=== PATIENT | male | born 1955 | race Caucasian/White ===

== ENCOUNTER 2025-02-01 08:06 | Inpatient (IN) | payer OTHER ==
[~2025-02-01] VITALS: Ht 177.8 cm; Wt 77.0 kg
[2025-02-01] VITALS (9 sets, daily range): BP systolic 141–149; BP diastolic 68–83; PULSE 73–105; RESP 16–20; TEMP 98.3–99.8; O2SAT 92–100
[2025-02-01] MEDS: ACETAMINOPHEN 500 MG TAB or CAP PO ONE (08:18)
--- NOTE | 2025-02-01 08:30 | ED.PDOC ---
SOB-HPI HPI Comments 69 y/o M, BIBA, with PMHx of COPD, HTN, and CHF presents to the ED for CC of shortness of breath. EMS reports, patient is coming from home where he c/o shortness of breath x2days. Patient relays, to have further associated symptoms of weakness, dizziness, and fever. Upon arrival to the ED, patient is stating at 96% on R.A. Patient denies cough, nasal congestion, chest pain, or sick contacts. No other symptoms or modifying factors are present at this time. Chief Complaint: Shortness of Breath Time Seen by MD: 08:15 Reviewed notes: Nurses Notes, [employer] Notes, Medications, Allergies Information Source: Patient, Emergency Med Personnel Mode of Arrival: EMS Severity: Moderate Timing: Days Duration: Since onset Context: At Rest PE Risk Factors: None History of: COPD, CHF Prehospital treatment: None Modifying Factors: Nothing Associated Signs and Symptoms: Fever Past Medical History PAST MEDICAL HISTORY: CHF, COPD, Gout Surgical History: Denies all surgeries Family History Family History: Unknown Social History Smoker: Unknown Alcohol: Unknown Drugs: Unknown Lives In: Home Constitutional: reports: fever, weakness; denies: chills, diaphoresis, fatigue, malaise, sweats, others EENTM: denies: blurred vision, double vision, ear bleeding, ear discharge, ear drainage, ear pain, ear ringing, eye pain, eye redness, hearing loss, mouth pain, mouth swelling, nasal discharge, nose bleeding, nose congestion, nose pain, photophobia, tearing, throat pain, throat swelling, voice changes, others Respiratory: reports: shortness of breath; denies: cough, hemoptysis, orthopnea, SOB at rest, SOB with excertion, stridor, wheezing, others Cardiovascular: denies: chest pain, dizzy spells, diaphoresis, Dyspnea on exertion, edema, irregular heart beat, left arm pain, lightheadedness, palpitations, PND, syncope, others Gastrointestinal: denies: abdomen distended, abdominal pain, blood streaked bowels, constipated, diarrhea, dysphagia, difficulty swallowing, hematemesis, melena, nausea, poor appetite, poor fluid intake, rectal bleeding, rectal pain, vomiting, others Genitourinary: denies: burning, dysuria, flank pain, frequency, hematuria, incontinence, penile discharge, penile sore, pain, testicle pain, testicle swelling, urgency, others Neurological: reports: dizziness; denies: fainting, headache, left sided numbness, left sided weakness, numbness, paresthesia, pre-existing deficit, right sided numbness, right sided weakness, seizure, speech problems, tingling, tremors, weakness, others Musculoskeletal: denies: back pain, gout, joint pain, joint swelling, muscle pain, muscle stiffness, neck pain, others Integumetry: denies: bruises, change in color, change in hair/nails, dryness, laceration, lesions, lumps, rash, wounds, others Allergic/Immunocompromised: denies: Difficulty Healing, Frequent Infections, Hives, Itching, others Hematologic/Lymphatic: denies: anemia, blood clots, easy bleeding, easy bruising, swollen glands, others Endocrine: denies: excessive hunger, excessive sweating, excessive thirst, excessive urination, flushing, intolerance to cold, intolerance to heat, unexplained weight gain, unexplained weight loss, others Psychiatric: denies: anxiety, bipolar disorder, depression, hopeless, panic disorder, schizophrenia, sleepless, suicidal, others All Other Systems: Reviewed and Negative Physical Exam General Appearance: Severe Distress HEENT: Normal ENT Inspection, Pharynx Normal, TMs Normal Neck: Full Range of Motion, Non-Tender, Normal, Normal Inspection Respiratory: Other (Coarse breath sounds) Cardiovascular: Tachycardia Breast Exam: Deferred Gastrointestinal: No Organomegaly, Non Tender, No Pulsatile Mass, Normal Bowel Sounds, Soft Genitalia: Deferred Pelvic: Deferred Rectal: Deferred Extremities: No calf tenderness, Normal capillary refill, Normal inspection, Normal range of motion, Non-tender, No pedal edema Musculoskeletal : Apperance: Normal Neurologic: Alert, cuffer II-XII nml as Tested, No Motor Deficits, Normal Affect, Normal Mood, No Sensory Deficits Cerebellar Function: Normal Reflexes: Normal Skin: Dry, Normal Color, Warm Peripheral Pulses: 3+ Radial (R), 3+ Radial (L) Lymphatic: No Adenopathy EKG EKG : Pulse Rate (adult): 107 [place]: Normal Cardiac Rhythm: ST Block: None Hypertrophy: None ST: Normal Was a procedure done? Was a procedure done?: No Differential Dx Differential Diagnosis: Anxiety, Asthma, Bronchitis, CHF, COPD, Pneumonia, Pulmonary Embolism, Sinusitis, Pharyngitis, URI X-Ray, Labs, Meds, VS Vital Signs Date Time Temp Pulse Resp B/P (MAP) Pulse Ox O2 Delivery O2 Flow Rate FiO2 02/01/25 12:00 83 17 141/68 (92) 94 02/01/25 10:00 101 17 116/65 (82) 93 02/01/25 09:22 99.8 02/01/25 08:39 18 91 Nasal Cannula* 3 32 02/01/25 08:35 107 02/01/25 08:23 101.7 104 20 138/63 (88) 93 101.7 02/01/25 08:23 104 20 93 Nasal Cannula* 3 32 02/01/25 08:18 101.7 02/01/25 08:17 107 02/01/25 08:06 101.7 99 20 144/66 96 101.7 Lab Test 02/01/25 11:58 02/01/25 09:57 02/01/25 09:20 02/01/25 08:52 Range/Units Troponin I High Sensitivity Pending 9 7 </=54 ng/L Lactic Acid Level 0.9 0.4-2.0 mmol/L White Blood Count 5.3 4.4-10.8 10^3/uL Red Blood Count 4.26 L 4.5-5.90 10^6/uL Hemoglobin 14.2 13.5-17.5 g/dL Hematocrit 40.4 L 41.0-53.0 % Mean Corpuscular Volume 94.8 80.0-100.0 fL Mean Corpuscular Hemoglobin 33.3 H 28.0-32.0 pg Mean Corpuscular Hemoglobin Concent 35.2 32.0-36.0 g/dL Red Cell Distribution Width 13.8 11.8-14.3 % Platelet Count 162 140-450 10^3/uL Mean Platelet Volume 7.6 6.9-10.8 fL Neutrophils (%) (Auto) 81.0 H 37.0-80.0 % Lymphocytes (%) (Auto) 6.5 L 10.0-50.0 % Monocytes (%) (Auto) 12.2 H 0.0-12.0 % Eosinophils (%) (Auto) 0.0 0.0-7.0 % Basophils (%) (Auto) 0.3 0.0-2.0 % Neutrophils # (Auto) 4.3 1.6-8.6 10 ^3/uL Lymphocytes # (Auto) 0.3 L 0.4-5.4 10 ^3/uL Monocytes # (Auto) 0.6 0-1.3 10 ^3/uL Eosinophils # (Auto) 0 0-0.8 10 ^3/uL Basophils # (Auto) 0 0-0.2 10 ^3/uL Nucleated Red Blood Cells 0.1 % Sodium Level 138 136-145 mmol/L Potassium Level 3.8 3.5-5.1 mmol/L Chloride Level 104 98-107 mmol/L Carbon Dioxide Level 23 20-31 mmol/L Anion Gap 11 5-15 Blood Urea Nitrogen 6 L 9-23 mg/dL Creatinine 0.82 0.700-1.30 mg/dL Glomerular Filtration Rate Calc 95 >90 mL/min BUN/Creatinine Ratio 7.3 L 10.0-20.0 Serum Glucose 155 H 74-106 mg/dL Calcium Level 8.4 L 8.7-10.4 mg/dL B-Type Natriuretic Peptide 104.72 0-100 pg/mL Current Medications Medications (Trade) Dose Ordered Sig/Don Route Start Time Stop Time Status Last Admin Acetaminophen (Tylenol Tablet Or Capsule) 1,000 mg ONCE ONCE PO 02/01/25 08:15 02/01/25 08:16 DC 02/01/25 08:18 Albuterol (Ventolin Medneb) 2.5 mg STAT ONCE [facility] 02/01/25 08:15 02/01/25 08:16 DC 02/01/25 08:39 Ipratropium [place] (Atrovent Medneb) 0.5 mg ONCE ONCE [facility] 02/01/25 08:15 02/01/25 08:16 DC 02/01/25 08:39 Methylprednisolone Sodium Succinate (Solu Medrol) 125 mg ONCE ONCE IV 02/01/25 08:45 02/01/25 08:46 DC 02/01/25 08:52 Magnesium Sulfate/ Dextrose 100 ml @ 100 mls/hr ONCE ONCE IV 02/01/25 08:45 02/01/25 09:44 DC 02/01/25 12:03 Aspirin 325 mg ONCE ONCE PO 02/01/25 08:45 02/01/25 08:46 DC 02/01/25 09:01 Cefepime HCl 50 ml @ 12.5 mls/hr ONCE ONCE IV 02/01/25 09:15 02/01/25 13:14 02/01/25 09:16 Azithromycin 250 ml @ 125 mls/hr ONCE ONCE IV 02/01/25 09:15 02/01/25 11:14 DC 02/01/25 09:16 Sodium Chloride 1,000 ml @ 1,000 mls/hr Q1H ONCE IV 02/01/25 09:15 02/01/25 10:14 DC 02/01/25 10:37 Sodium Chloride 1,000 ml @ 150 mls/hr Q6H40M ONCE IV 02/01/25 09:15 02/01/25 15:54 02/01/25 12:29 Patient alert. Complaining of shortness a breath. Possible sepsis. Placed on oxygen. Establish intravenous access. Was given fluids. Was given steroid. Was given breathing treatment. Was given cefepime. Was given azithromycin. Explained to the patient. Continue monitoring. [place] approved inpatient admission [id number]. [place] [address] Ph: [phone] DIAGNOSTIC IMAGING Diagnostic Imaging Report : [id number] Signed PATIENT: NYA BARKER ACCT: [id number] UNIT: [id number] : 1955 LOC: ER ROOM / BED: / AGE / SEX: 69 / M ADM STATUS: REG ER SERVICE 9 ORDERING PHYSICIAN: LITZY NUÑEZ MD PROCEDURE(s): CXRP - CHEST PORTABLE REASON: sob ORDER NUMBER(s): [id number], ACCESSION NUMBER(s): [id number] XY CHEST PORTABLE, HISTORY: sob COMPARISON: None None TECHNICAL DATA: 1 view of the chest was obtained. FINDINGS: Lines and tubes: None Cardiomediastinal silhouette: normal Pulmonary vasculature: prominent Lung expansion: low Lung airspace: normal Lung interstitium: normal Pleura: normal Pneumothorax: no Bones: Unremarkable Other: no IMPRESSION: Pulmonary vascular congestion. ATED BY: NARAYAN CRUZ MD DICTATED DATE/TIME: 02/01/25924 SIGNED BY: NARAYAN CRUZ MD SIGNED DATE/TIME: 02/01/25924 CC: Time of 1ST Reevaluation: 08:45 Reevaluation 1ST: Unchanged Patient Education/Counseling: Diagnosis, Treatment Family Education/Counseling: No Family Present SEPSIS Sepsis Screen Date sepsis recognized/suspect: Feb 01, 2025 Time Sepsis recognized/suspect: 805 Recent Procedure: No On Antibiotic Therapy: No Respiratory Rate >20: No Heart Rate >90: No Temp<36 C (96.8 F) or >38.3 C: Yes SBP <90 or MAP <65 mmHG: No New Acute Mental Status Change: No Is the patient on CPAP, BIPAP,: No Physician Orders Electrocardigram (02/01/25 08:21) Chest Portable (02/01/25 08:40) Urinalysis (02/01/25 08:40) Troponin-I Hs (02/01/25 11:40) Blood Culture (02/01/25 09:05) Cefepime 1gm/ 50ml (Maxipime 1gm/50ml) (02/01/25 09:15) Sodium Chloride 0.9% (02/01/25 09:15) Vital Signs Date Time Temp Pulse Resp B/P (MAP) Pulse Ox O2 Delivery O2 Flow Rate FiO2 02/01/25 12:00 83 17 141/68 (92) 94 02/01/25 10:00 101 17 116/65 (82) 93 02/01/25 09:22 99.8 02/01/25 08:39 18 91 Nasal Cannula* 3 32 02/01/25 08:35 107 02/01/25 08:23 101.7 104 20 138/63 (88) 93 101.7 02/01/25 08:23 104 20 93 Nasal Cannula* 3 32 02/01/25 08:18 101.7 02/01/25 08:17 107 02/01/25 08:06 101.7 99 20 144/66 96 101.7 Laboratory Tests Test 02/01/25 08:52 02/01/25 09:20 White Blood Count 5.3 10^3/uL (4.4-10.8) Lactic Acid Level 0.9 mmol/L (0.4-2.0) Medications Medications Dose Ordered Sig/Don Route Start Time Stop Time Status Last Admin Dose Admin Acetaminophen 1,000 mg ONCE ONCE PO 02/01/25 08:15 02/01/25 08:16 DC 02/01/25 08:18 Albuterol 2.5 mg STAT ONCE [facility] 02/01/25 08:15 02/01/25 08:16 DC 02/01/25 08:39 Aspirin 325 mg ONCE ONCE PO 02/01/25 08:45 02/01/25 08:46 DC 02/01/25 09:01 Azithromycin 250 ml @ 125 mls/hr ONCE ONCE IV 02/01/25 09:15 02/01/25 11:14 DC 02/01/25 09:16 Cefepime HCl 50 ml @ 12.5 mls/hr ONCE ONCE IV 02/01/25 09:15 02/01/25 13:14 02/01/25 09:16 Ipratropium [place] 0.5 mg ONCE ONCE [facility] 02/01/25 08:15 02/01/25 08:16 DC 02/01/25 08:39 Magnesium Sulfate/ Dextrose 100 ml @ 100 mls/hr ONCE ONCE IV 02/01/25 08:45 02/01/25 09:44 DC 02/01/25 12:03 Methylprednisolone Sodium Succinate 125 mg ONCE ONCE IV 02/01/25 08:45 02/01/25 08:46 DC 02/01/25 08:52 Sodium Chloride 1,000 ml @ 150 mls/hr Q6H40M ONCE IV 02/01/25 09:15 02/01/25 15:54 02/01/25 12:29 Sodium Chloride 1,000 ml @ 1,000 mls/hr Q1H ONCE IV 02/01/25 09:15 02/01/25 10:14 DC 02/01/25 10:37 Departure 1 Departure Time of Disposition: 09:04 Impression: Primary Impression: Respiratory failure Qualified Codes: J96.01 - Acute respiratory failure with hypoxia Additional Impression: Sepsis Qualified Codes: A41.9 - Sepsis, unspecified organism Disposition: ADMITTED INPATIENT Admit to: Med Surg Condition: Guarded Critical Care Note Critical Care Time?: Yes (90 min-critical care time only) Critical care comment: Placed on oxygen Stability Stability form required: No Heart Score Heart Score: Heart Score Response (Comments) Value History Slightly Suspicious 0 EKG Normal 0 Age >65 2 Risk Factors >3 or Hx ASHD 2 Troponin Normal limit 0 Total 4 I personally scribed for LITZY NUÑEZ MD ([email or web address]) on 02/01/25 at 08:30. Electronically submitted by Cesia Hidalgo (Wi-ChiSCITIA). I personally scribed for LITZY NUÑEZ MD ([email or web address]) on 02/01/25 at 08:35. Electronically submitted by Cesia Hidalgo ([employer]). I personally scribed for LITZY NUÑEZ MD ([email or web address]) on 02/01/25 at 10:41. Electronically submitted by Cesia Hidalgo (Wi-[employer]SCITIA). LIZTY NUÑEZ MD Feb 01, 2025 08:30
[2025-02-01] MEDS: IPRATROPIUM BROM 0.5 MG/2.5ML INH SOL HHN ONE (08:39)
[2025-02-01] MEDS: ALBUTEROL SULF 2.5 MG/0.5ML(0.5%) NEB SOLN HHN ONE (08:39)
[2025-02-01] MEDS: methylPREDNISolone SOD SUCC 125 MG/2 ML VL IV ONE (08:52)
[2025-02-01 09:13] LABS: Hematocrit 40.4 % (41.0-53.0); Hemoglobin 14.2 g/dL (13.5-17.5); Mean Corpuscular Hemoglobin 33.3 pg (28.0-32.0); Mean Corpuscular Volume 94.8 fL (80.0-100.0); Nucleated Red Blood Cells % 0.1 %
[2025-02-01] MEDS: CEFEPIME 1GM/ 50ML 50 ML IV ONE (09:16)
[2025-02-01] MEDS: AZITHROMYCIN 500MG/ 250ML 250 ML IV ONE (09:16)
[2025-02-01 09:22] LABS: Chloride 104 mmol/L (98-107); Potassium 3.8 mmol/L (3.5-5.1); Sodium 138 mmol/L (136-145)
[2025-02-01 09:23] LABS: Anion Gap 11 (5-15); Carbon Dioxide 23 mmol/L (20-31)
[2025-02-01 09:24] LABS: Calcium 8.4 mg/dL (8.7-10.4)
--- NOTE | 2025-02-01 09:27 | DVH ---
XY CHEST PORTABLE, HISTORY: sob COMPARISON: None None TECHNICAL DATA: 1 view of the chest was obtained. FINDINGS: Lines and tubes: None Cardiomediastinal silhouette: normal Pulmonary vasculature: prominent Lung expansion: low Lung airspace: normal Lung interstitium: normal Pleura: normal Pneumothorax: no Bones: Unremarkable Other: no IMPRESSION: Pulmonary vascular congestion.
[2025-02-01 09:28] LABS: BUN/Creatinine Ratio 7.3 (10.0-20.0)
[2025-02-01 09:30] LABS: Blood Urea Nitrogen 6 mg/dL (9-23); Glucose 155 mg/dL (74-106)
[2025-02-01] MEDS: SODIUM CHLORIDE 0.9% 1,000 ML IV ONE ×2 (10:37→12:29)
[2025-02-01] MEDS: MAGNESIUM SULFATE 1GM/100ML 100 ML IV ONE (12:03)
[2025-02-01] MEDS ORDERED: HYDROcodone-ACET 5/325MG TAB PO PRN (13:15)
[2025-02-01] MEDS ORDERED: DOCUSATE SOD 100 MG CAP PO PRN (13:15)
[2025-02-01] MEDS ORDERED: ONDANSETRON HCL 4 MG/2 ML VIAL IV PRN (13:15)
[2025-02-01] MEDS ORDERED: SIMV20TA20 PO (13:55)
[2025-02-01] MEDS ORDERED: FIN5T PO (13:55)
[2025-02-01] MEDS ORDERED: AZEL0.1S NAS (13:55)
[2025-02-01] MEDS ORDERED: ALLO100T PO (13:55)
[2025-02-01] MEDS ORDERED: ASPI81CH49 PO (13:55)
[2025-02-01] MEDS ORDERED: AMLO1TAB22 PO (13:55)
[2025-02-01] MEDS ORDERED: TERA10CA19 PO (13:55)
[2025-02-01] MEDS ORDERED: MONT-8 PO (13:55)
[2025-02-01] MEDS ORDERED: LISI20TA56 PO (13:55)
--- NOTE | 2025-02-01 14:22 | DVHHP2 ---
History of Present Illness Reason for Visit: Confusion History of Present Illness Manny Hou is a 69-year-old male with past medical history of hypertension, hyperlipidemia, and COPD who came to the hospital for acute confusion. Patient states he was starting to feel bad last night with a headache, cough, and shortness of breath. This morning when he woke up he was flushed, had fever, and was confused according to his , so she had him come to the hospital. Patient is A&O x 4 at time of assessment, but when he first arrived at the hospital he was altered and did not know where he was or why he was here. Patient has made improvements after receiving IV antibiotics and IV fluids. 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) Smoke: No ALCOHOL: occassional Drugs: None Lives: with Family Domestic Violence: Neg Review of Systems Constitutional: Yes: Fever, Chills, Weakness, Malaise; No: Sweats, Other Eyes: No: Pain, Vision change, Conjunctivae inflammation, Eyelid inflammation, Other, Redness ENT: No: Ear pain, Ear discharge, Nose pain, Nose discharge, Nose congestion, Mouth pain, Mouth swelling, Throat pain, Throat swelling, Other Respiratory: No: Cough, Dry, Shortness of breath, SOB with excertion, Wheezing, Hemoptysis, Pleuritic Pain, Sputum, Wheezing, Other Cardiovascular: No: Chest Pain, Palpitations, Orthopnea, Paroxysmal Noc. Dyspnea, Edema, Lt Headedness, Other Gastrointestinal: No: Nausea, Vomiting, Abdominal Pain, Diarrhea, Constipation, Melena, Hematochezia, Other Genitourinary: No Dysuria, No Frequency, No Incontinence, No Hematuria, No Retention, No Other Musculoskeletal: No: other, neck pain, shoulder pain, arm pain, back pain, hand pain, leg pain, foot pain Skin: No: Rash, Lesions, Jaundice, Bruising, Other Neurological: Confusion; No: Weakness, Numbness, Incoordination, Change in speech, Seizures, Other Allergies: Coded Allergies: NO KNOWN ALLERGIES (Unverified , 02/01/25) Medications Current Medications Medications Dose Ordered Sig/Don Route Start Time Stop Time Status Last Admin Dose Admin Acetaminophen/ Hydrocodone Bitart 1 tab Q4HP PRN PO 02/01/25 13:15 UNV Ondansetron HCl 4 mg Q4HP PRN IV 02/01/25 13:15 UNV Docusate Sodium 100 mg BIDPRN PRN PO 02/01/25 13:15 UNV Acetaminophen 650 mg Q6HP PRN PO 02/01/25 13:15 UNV Azithromycin 250 ml @ 125 mls/hr DAILY IV 02/02/25 10:00 UNV Ceftriaxone Sodium 50 ml @ 100 mls/hr DAILY@09 IV 02/02/25 09:00 UNV Ipratropium Stark 0.5 mg Q6HWA NEB 02/01/25 18:00 UNV Albuterol 2.5 mg Q6HWA NEB 02/01/25 18:00 UNV Methylprednisolone Sodium Succinate 40 mg BID IV 02/01/25 22:00 UNV Exam Vital Signs Vital Signs Date Time Temp Pulse Resp B/P (MAP) Pulse Ox O2 Delivery O2 Flow Rate FiO2 02/01/25 12:00 83 17 141/68 (92) 94 02/01/25 09:22 99.8 02/01/25 08:39 Nasal Cannula* 3 32 General Appearance: Alert, Oriented X3, Cooperative, mild distress HEENT: Atraumatic, PERRLA Cardiovascular: Regular rate, Normal S1, Normal S2 Abdominal: Normal bowel sounds, Soft, No tenderness, No hepatospenomegaly Extremities: No clubbing, No cyanosis, No edema, Normal pulses, No tenderness/swelling Skin: No rashes, No breakdown, No significant lesion Neuro: Normal gait, Normal speech, Strength at 5/5 X4 ext Psych/Mental Status: Mental status NL, Mood NL Labs/Xrays Labs Test 02/01/25 11:58 02/01/25 09:20 02/01/25 08:52 Range/Units Troponin I High Sensitivity 10 </=54 ng/L Lactic Acid Level 0.9 0.4-2.0 mmol/L White Blood Count 5.3 4.4-10.8 10^3/uL Red Blood Count 4.26 L 4.5-5.90 10^6/uL Hemoglobin 14.2 13.5-17.5 g/dL Hematocrit 40.4 L 41.0-53.0 % Mean Corpuscular Volume 94.8 80.0-100.0 fL Mean Corpuscular Hemoglobin 33.3 H 28.0-32.0 pg Mean Corpuscular Hemoglobin Concent 35.2 32.0-36.0 g/dL Red Cell Distribution Width 13.8 11.8-14.3 % Platelet Count 162 140-450 10^3/uL Mean Platelet Volume 7.6 6.9-10.8 fL Neutrophils (%) (Auto) 81.0 H 37.0-80.0 % Lymphocytes (%) (Auto) 6.5 L 10.0-50.0 % Monocytes (%) (Auto) 12.2 H 0.0-12.0 % Eosinophils (%) (Auto) 0.0 0.0-7.0 % Basophils (%) (Auto) 0.3 0.0-2.0 % Neutrophils # (Auto) 4.3 1.6-8.6 10 ^3/uL Lymphocytes # (Auto) 0.3 L 0.4-5.4 10 ^3/uL Monocytes # (Auto) 0.6 0-1.3 10 ^3/uL Eosinophils # (Auto) 0 0-0.8 10 ^3/uL Basophils # (Auto) 0 0-0.2 10 ^3/uL Nucleated Red Blood Cells 0.1 % Sodium Level 138 136-145 mmol/L Potassium Level 3.8 3.5-5.1 mmol/L Chloride Level 104 98-107 mmol/L Carbon Dioxide Level 23 20-31 mmol/L Anion Gap 11 5-15 Blood Urea Nitrogen 6 L 9-23 mg/dL Creatinine 0.82 0.700-1.30 mg/dL Glomerular Filtration Rate Calc 95 >90 mL/min BUN/Creatinine Ratio 7.3 L 10.0-20.0 Serum Glucose 155 H 74-106 mg/dL Calcium Level 8.4 L 8.7-10.4 mg/dL B-Type Natriuretic Peptide 104.72 0-100 pg/mL XY CHEST PORTABLE, FINDINGS: Lines and tubes: None Cardiomediastinal silhouette: normal Pulmonary vasculature: prominent Lung expansion: low Lung airspace: normal Lung interstitium: normal Pleura: normal Pneumothorax: no Bones: Unremarkable Other: no IMPRESSION: Pulmonary vascular congestion. SEPSIS Sepsis Screen Date sepsis recognized/suspect: Feb 01, 2025 Time Sepsis recognized/suspect: 813 Recent Procedure: No On Antibiotic Therapy: No Respiratory Rate >20: No Heart Rate >90: Yes Temp<36 C (96.8 F) or >38.3 C: Yes SBP <90 or MAP <65 mmHG: No New Acute Mental Status Change: No Is the patient on CPAP, BIPAP,: No Physician Orders Electrocardigram (02/01/25 08:21) Chest Portable (02/01/25 08:40) Urinalysis (02/01/25 08:40) Blood Culture (02/01/25 09:05) Sodium Chloride 0.9% (02/01/25 09:15) Rapid Influenza A&B (02/01/25 13:32) Covid19 Antigen Gina (02/01/25 ) Admit (02/01/25 13:13) Code Status (02/01/25 13:13) Hydrocodone-Acet 5/325mg Tab ([place] (02/01/25 13:15) Ondansetron Hcl (Zofran) (02/01/25 13:15) Docusate Sodium Capsule (Colace Capsule) (02/01/25 13:15) Complete Blood Count (02/02/25 04:00) Comprehensive Metabolic Panel (02/02/25 04:00) Cardiac Diet-2gna,Lofat,Lochol (02/01/25 Lunch) Condition: Serious (02/01/25 13:13) Acetaminophen Tablet (Tylenol Tablet) (02/01/25 13:15) Azithromycin 500mg/ 250ml (Zithromax 50 (02/02/25 10:00) Ceftriaxone 1gm/50ml D5w (Rocephin) (02/02/25 09:00) Ipratropium Medneb (Atrovent Medneb) (02/01/25 18:00) Albuterol Medneb (Ventolin Medneb) (02/01/25 18:00) Methylprednisolone Sod Succ (Solu Medrol (02/01/25 22:00) Allopurinol Tablet (Zyloprim Tablet) (02/02/25 10:00) Amlodipine Tablet (Norvasc Tablet) (02/02/25 10:00) Finasteride Tablet (Proscar Tablet) (02/02/25 10:00) Lisinopril Tablet (Zestril Tablet) (02/02/25 10:00) Montelukast Tablet (Singulair Tablet) (02/02/25 10:00) (Nf) Aspirin (02/02/25 10:00) (Nf) Azelastine Hcl (02/01/25 22:00) (Nf) Simvastatin (02/01/25 22:00) (Nf) Terazosin Hcl (02/01/25 22:00) Vital Signs Date Time Temp Pulse Resp B/P (MAP) Pulse Ox O2 Delivery O2 Flow Rate FiO2 02/01/25 12:00 83 17 141/68 (92) 94 02/01/25 10:00 101 17 116/65 (82) 93 02/01/25 09:22 99.8 02/01/25 08:39 18 91 Nasal Cannula* 3 32 02/01/25 08:35 107 02/01/25 08:23 101.7 104 20 138/63 (88) 93 101.7 02/01/25 08:23 104 20 93 Nasal Cannula* 3 32 02/01/25 08:18 101.7 02/01/25 08:17 107 02/01/25 08:06 101.7 99 20 144/66 96 101.7 Laboratory Tests Test 02/01/25 08:52 02/01/25 09:20 White Blood Count 5.3 10^3/uL (4.4-10.8) Lactic Acid Level 0.9 mmol/L (0.4-2.0) Medications Medications Dose Ordered Sig/Don Route Start Time Stop Time Status Last Admin Dose Admin Acetaminophen 1,000 mg ONCE ONCE PO 02/01/25 08:15 02/01/25 08:16 DC 02/01/25 08:18 1,000 MG Albuterol 2.5 mg STAT ONCE HHN 02/01/25 08:15 02/01/25 08:16 DC 02/01/25 08:39 2.5 MG Aspirin 325 mg ONCE ONCE PO 02/01/25 08:45 02/01/25 08:46 DC 02/01/25 09:01 325 MG Azithromycin 250 ml @ 125 mls/hr ONCE ONCE IV 02/01/25 09:15 02/01/25 11:14 DC 02/01/25 09:16 125 MLS/HR Cefepime HCl 50 ml @ 12.5 mls/hr ONCE ONCE IV 02/01/25 09:15 02/01/25 13:14 DC 02/01/25 09:16 12.5 MLS/HR Ipratropium Stark 0.5 mg ONCE ONCE HHN 02/01/25 08:15 02/01/25 08:16 DC 02/01/25 08:39 0.5 MG Magnesium Sulfate/ Dextrose 100 ml @ 100 mls/hr ONCE ONCE IV 02/01/25 08:45 02/01/25 09:44 DC 02/01/25 12:03 100 MLS/HR Methylprednisolone Sodium Succinate 125 mg ONCE ONCE IV 02/01/25 08:45 02/01/25 08:46 DC 02/01/25 08:52 125 MG Sodium Chloride 1,000 ml @ 150 mls/hr Q6H40M ONCE IV 02/01/25 09:15 02/01/25 15:54 02/01/25 12:29 150 MLS/HR Sodium Chloride 1,000 ml @ 1,000 mls/hr Q1H ONCE IV 02/01/25 09:15 02/01/25 10:14 DC 02/01/25 10:37 1,000 MLS/HR Assessment/Plan Assessment/Plan Assessment: SIRS (systemic inflammatory response syndrome), Acute hypoxic respiratory failure, Acute confusion, COPD, Hypertension, Hyperlipidemia, Plan: Admit to Med-Surg, IV antibiotics, IV hydration, IV steroids, Breathing treatments, Swab for COVD and Influenza A&B, Home medications reconciled, Plan discussed with: Patient, Spouse My Orders Orders - JERONIMO KHANNA Procedure Category Date Status Time Rapid Influenza A&B LAB 02/01/25 Logged 13:32 Covid19 Antigen Gina LAB 02/01/25 Logged Admit ADMIT 02/01/25 Transmitted 13:13 Code Status CODE 02/01/25 Transmitted 13:13 Hydrocodone-Acet PHA 02/01/25 Logged 5/325mg Tab ([place] 13:15 Ondansetron Hcl PHA 02/01/25 Logged (Zofran) 13:15 Docusate Sodium PHA 02/01/25 Logged Capsule (Colace 13:15 Complete Blood Count LAB 02/02/25 Verified 04:00 Comprehensive LAB 02/02/25 Verified Metabolic Panel 04:00 Cardiac DIET 02/01/25 Transmitted Diet-2gna,Lofat,Lochol Lunch Condition: Serious [place] 02/01/25 In Process 13:13 Acetaminophen Tablet PHA 02/01/25 Logged (Tylenol Tablet) 13:15 Azithromycin 500mg/ PHA 02/02/25 Logged 250ml (Zithromax 50 10:00 Ceftriaxone 1gm/50ml PHA 02/02/25 Logged D5w (Rocephin) 09:00 Ipratropium Medneb PHA 02/01/25 Logged (Atrovent Medneb) 18:00 Albuterol Medneb PHA 02/01/25 Logged (Ventolin Medneb) 18:00 Methylprednisolone PHA 02/01/25 Logged Sod Succ (Solu Medrol 22:00 Allopurinol Tablet PHA 02/02/25 Verified (Zyloprim Tablet) 10:00 Amlodipine Tablet PHA 02/02/25 Verified (Norvasc Tablet) 10:00 Finasteride Tablet PHA 02/02/25 Verified (Proscar Tablet) 10:00 Lisinopril Tablet PHA 02/02/25 Verified (Zestril Tablet) 10:00 Montelukast Tablet PHA 02/02/25 Verified (Singulair Tablet) 10:00 (Nf) Aspirin PHA 02/02/25 Verified 10:00 (Nf) Azelastine Hcl PHA 02/01/25 Verified 22:00 (Nf) Simvastatin PHA 02/01/25 Verified 22:00 (Nf) Terazosin Hcl PHA 02/01/25 Verified 22:00 Date of Service: Feb 01, 2025 Billing Provider: JERONIMO KHANNA Common Visit Codes: [id number] INP/OBS CARE (MOD) JERONIMO KHANNA Feb 01, 2025 14:22
[2025-02-01 14:45] LABS: Urine Protein, UAD Negative (Negative)
[2025-02-01 14:49] LABS: COVID19 ANTIGEN SOFIA FIA POSITIVE (NEGATIVE)
[2025-02-01] MEDS: IPRATROPIUM BROM 0.5 MG/2.5ML INH SOL NEB SCH (18:03)
[2025-02-01] MEDS: ALBUTEROL SULF 2.5 MG/0.5ML(0.5%) NEB SOLN NEB SCH (18:03)
[2025-02-01] MEDS: methylPREDNISolone SOD SUCC 40 MG/ML VL IV SCH (21:54)
[2025-02-01] MEDS: ACETAMINOPHEN 325 MG TAB PO PRN (21:55)
[2025-02-01] MEDS: TERAZOSIN HCL 5 MG CAP PO SCH (21:55)
[2025-02-01] MEDS: ATORVASTATIN 20 MG TAB PO SCH (21:55)
[2025-02-01] MEDS: AZELASTINE HCL IN SCH (21:59)
[2025-02-01] MEDS ORDERED: PATIENTS OWN MEDICATION (Simvastatin 1 TAB) PO SCH (22:00)
[2025-02-02] VITALS (13 sets, daily range): BP systolic 125–155; BP diastolic 60–95; PULSE 18–110; RESP 16–19; TEMP 97.8–99.2; O2SAT 95–100
[2025-02-02 06:02] LABS: Hematocrit 38.4 % (41.0-53.0); Hemoglobin 13.9 g/dL (13.5-17.5); Mean Corpuscular Hemoglobin 34.0 pg (28.0-32.0); Mean Corpuscular Volume 94.0 fL (80.0-100.0); Nucleated Red Blood Cells % 0.0 %
[2025-02-02 06:20] LABS: Alanine Aminotransferase 18 U/L (7-40); Albumin 3.9 g/dL (3.2-4.8); Alkaline Phosphatase 65 U/L (46-116); Anion Gap 9 (5-15); BUN/Creatinine Ratio 12.7 (10.0-20.0); Blood Urea Nitrogen 9 mg/dL (9-23); Calcium 8.9 mg/dL (8.7-10.4); Carbon Dioxide 26 mmol/L (20-31); Chloride 106 mmol/L (98-107); Potassium 4.0 mmol/L (3.5-5.1); Sodium 141 mmol/L (136-145); Total Protein 6.2 g/dL (5.7-8.2)
[2025-02-02 06:21] LABS: Bilirubin, Total 0.4 mg/dL (0.2-1.0)
[2025-02-02 06:50] LABS: Glucose 192 mg/dL (74-106)
[2025-02-02] MEDS: cefTRIAXone 1GM/50ML D5W 50 ML IV SCH (09:10)
[2025-02-02] MEDS: AZITHROMYCIN 500MG/ 250ML 250 ML IV SCH (09:10)
[2025-02-02] MEDS: ALLOPURINOL 100 MG TAB PO SCH (09:11)
[2025-02-02] MEDS: MONTELUKAST SODIUM 10 MG TAB PO SCH (09:11)
[2025-02-02] MEDS: FINASTERIDE 5 MG TAB PO SCH (09:12)
[2025-02-02] MEDS: LISINOPRIL 20 MG TAB PO SCH (09:12)
[2025-02-02] MEDS ORDERED: PATIENTS OWN MEDICATION (Aspirin 81 MG) PO SCH (10:00)
[2025-02-02 10:44] LABS: Hepatitis B Surface Antigen Negative (Negative); Hepatitis C Antibody Negative (Negative)
--- NOTE | 2025-02-02 10:56 | DVHPN2 ---
Progress Note Date Seen: Feb 02, 2025 Medical Necessity Reason Pt with a Central, PICC or Fol: No Subjective Patient reports: No new complaints Review of Systems: HEENT:Normal, CVS:Normal, RESPIRATORY:Normal, GI:Normal, :Normal, MSK:Normal, NEURO:Normal Objective vital signs Vital Sign Date Time Temp Pulse Resp B/P (MAP) Pulse Ox O2 Delivery O2 Flow Rate FiO2 02/02/25 09:12 137/78 02/02/25 08:54 97.8 84 17 97 97.8 02/02/25 05:56 Room Air 02/02/25 05:56 0 21 Total Intake and Output 02/01/25 02/01/25 02/02/25 15:00 23:00 07:00 Intake Total 1400 ml 180 ml Balance 1400 ml 180 ml medications Current Medications Medications Dose Ordered Sig/Don Route Start Time Stop Time Status Last Admin Dose Admin Acetaminophen/ Hydrocodone Bitart 1 tab Q4HP PRN PO 02/01/25 13:15 Ondansetron HCl 4 mg Q4HP PRN IV 02/01/25 13:15 Docusate Sodium 100 mg BIDPRN PRN PO 02/01/25 13:15 Acetaminophen 650 mg Q6HP PRN PO 02/01/25 13:15 02/01/25 21:55 650 MG Azithromycin 250 ml @ 125 mls/hr DAILY IV 02/02/25 10:00 02/02/25 09:10 125 MLS/HR Ceftriaxone Sodium 50 ml @ 100 mls/hr DAILY@09 IV 02/02/25 09:00 02/02/25 09:10 100 MLS/HR Ipratropium [place] 0.5 mg Q6HWA NEB 02/01/25 18:00 02/02/25 05:56 0.5 MG Albuterol 2.5 mg Q6HWA NEB 02/01/25 18:00 02/02/25 05:56 2.5 MG Methylprednisolone Sodium Succinate 40 mg BID IV 02/01/25 22:00 02/02/25 09:10 40 MG Allopurinol 200 mg DAILY PO 02/02/25 10:00 02/02/25 09:11 200 MG Amlodipine Besylate 5 mg DAILY PO 02/02/25 10:00 02/02/25 09:12 5 MG Finasteride 5 mg DAILY PO 02/02/25 10:00 02/02/25 09:12 5 MG Lisinopril 20 mg DAILY PO 02/02/25 10:00 02/02/25 09:12 20 MG Montelukast Sodium 10 mg DAILY PO 02/02/25 10:00 02/02/25 09:11 10 MG Patient Own Medication 81 mg DAILY PO 02/02/25 10:00 UNV Patient Own Medication 2 sprays BID IN 02/01/25 22:00 Patient Own Medication 1 tab HS PO 02/01/25 22:00 UNV Patient Own Medication 1 cap HS PO 02/01/25 22:00 UNV Aspirin 81 mg DAILY PO 02/02/25 10:00 02/02/25 09:11 81 MG Atorvastatin Calcium 10 mg HS PO 02/01/25 22:00 02/01/25 21:55 10 MG Terazosin HCl 10 mg HS PO 02/01/25 22:00 02/01/25 21:55 10 MG Examination: GENERAL:Normal, HEENT:Normal, NECK:Normal, LUNGS:Normal, CVS:Normal, ABDOMEN:Normal, MSK:Normal, SKIN:Normal, NEURO:Normal, :Normal laboratory and microbiology Laboratory Tests 02/02/25 05:28 Test 02/02/25 05:28 Range/Units Serum Glucose 192 H 74-106 mg/dL Microbiology Date/Time Source Procedure Growth Status 02/01/25 09:20 Blood Blood Culture - Preliminary NO GROWTH AFTER 24 HOURS OF INCUBATION. Resulted Problem List/Assessment/Plan Problem List/Assessment/Plan #1 acute resp failure: monitor oxygen #2 covid 19 with sepsis: iv steroids #3 ?pneumonia -gram positive/neg: iv antibiotics #4 copd with exacerbation #5 encephalopathy- metabolic #6 htn #7 hyperlipidemia #8 ? acute diastolic/systolic heart failure: echo advance care planning- full code-time spent 19 mins unstable for transfer Plan discussed with: Patient My Orders My Orders Orders - MERT STONE MD Procedure Category Date Status Time Regular Diet DIET 02/02/25 Transmitted Lunch Azithromycin Tablet PHA 02/03/25 Transmitted (Zithromax Tablet) 10:00 Echo 2d Mode Cardiac US 02/02/25 Transmitted DOP 10:51 Basic Metabolic Panel LAB 02/03/25 Verified 06:00 Complete Blood Count LAB 02/03/25 Verified 06:00 Magnesium LAB 02/03/25 Verified 05:00 Chest Portable XY 02/03/25 Transmitted 06:00 Date of Service: Feb 02, 2025 Billing Provider: MERT STONE MD Common Visit Codes: [id number] INP/OBS CARE(HIGH) Secondary Visit Codes: [id number] CARE PLAN 30 MINUTES MERT STONE MD Feb 02, 2025 10:56
[2025-02-03] VITALS (9 sets, daily range): BP systolic 139–151; BP diastolic 81–98; PULSE 61–96; RESP 12–17; TEMP 97.3–99.2; O2SAT 94–100
[2025-02-03 06:33] LABS: Hematocrit 39.4 % (41.0-53.0); Hemoglobin 13.6 g/dL (13.5-17.5); Mean Corpuscular Hemoglobin 32.6 pg (28.0-32.0); Mean Corpuscular Volume 94.8 fL (80.0-100.0); Nucleated Red Blood Cells % 0.0 %
--- NOTE | 2025-02-03 07:03 | DVH ---
CHEST RADIOGRAPH Indication: covid Technique: Single frontal view of the chest was obtained COMPARISON: XY CHEST PORTABLE on DOS: 02/01/25 FINDINGS: Lines and Tubes: None Lungs: Clear. Interval resolution of pulmonary vascular congestion and bibasilar pulmonary opacities . Pleura: No effusion. No pneumothorax. Cardiomediastinal contours: Unremarkable Bones: Unremarkable IMPRESSION: 1. No acute disease.
[2025-02-03 07:31] LABS: Anion Gap 11 (5-15); Carbon Dioxide 25 mmol/L (20-31); Chloride 106 mmol/L (98-107); Potassium 3.8 mmol/L (3.5-5.1); Sodium 142 mmol/L (136-145)
[2025-02-03 07:38] LABS: BUN/Creatinine Ratio 16.2 (10.0-20.0); Blood Urea Nitrogen 11 mg/dL (9-23); Magnesium 1.9 mg/dL (1.6-2.6)
[2025-02-03 07:40] LABS: Calcium 8.5 mg/dL (8.7-10.4); Glucose 182 mg/dL (74-106)
[2025-02-03] MEDS: AZITHROMYCIN 250 MG TAB PO SCH (08:24)
--- NOTE | 2025-02-03 08:34 | DVHSR ---
APPROVED REPORT EXAM: Two-dimensional and M-mode echocardiogram with Doppler and color Doppler. Blood Pressure: 137/78 mmHg INDICATION Dyspnea ?CHF RISK FACTORS Height: 5' 10", Weight: 174 DIMENSIONS LVDd4.9 (3.8-5.7cm)LA (2D)4.2 (1.9-4.0cm)Aortic Root3.5 (2.0-3.7cm) LVDs3.5 (2.5-4.0cm)LA (MM) (1.9-4.0cm)Aortic Cusp Exc1.9 (1.5-2.0cm) EF (%) 56.0 (55-70%)Rt. Atrium4.2 (1.9-4.0cm)Asc. Aorta cm IVSd1.1 (0.7-1.1cm)RV (D) (1.8-2.4cm) PWd1.1 (0.7-1.1cm) Mitral Valve MitralMitral Stenosis E wave1.40m/sMV Mean GR.mmHg A wave1.40m/sMV Peak GR.mmHg E/A ratio1.02D MVAcm2 Aortic Valve Aortic ValveAortic Stenosis V11.40m/Kera Mean GR.8mmHg V21.90m/Kera Peak GR.16mmHg LVOT Diameter2.1 (1.8-2.4cm)Doppler AVA2.55cm2 Pulmonic Valve V20.90m/s Other Information Quality : Technically LimitedRhythm : Conclusion LVEF normal at 60-65%, moderate diastolic dysfunction Right ventricle mildly dilated with normal function Mild left and right atrial dilation All valves not well visualized, likely grossly normal
--- NOTE | 2025-02-03 12:03 | DVHDS2 ---
Discharge Summary Date of Admission Feb 01, 2025 at 13:13 Date of Discharge: Feb 03, 2025 Labs/Diagnostic Data: Laboratory Results Test 02/03/25 05:21 02/02/25 05:28 02/01/25 14:00 02/01/25 11:58 White Blood Count 11.0 10^3/uL (4.4-10.8) Red Blood Count 4.16 10^6/uL (4.5-5.90) Hemoglobin 13.6 g/dL (13.5-17.5) Hematocrit 39.4 % (41.0-53.0) Mean Corpuscular Volume 94.8 fL (80.0-100.0) Mean Corpuscular Hemoglobin 32.6 pg (28.0-32.0) Mean Corpuscular Hemoglobin Concent 34.4 g/dL (32.0-36.0) Red Cell Distribution Width 13.8 % (11.8-14.3) Platelet Count 200 10^3/uL (140-450) Mean Platelet Volume 8.1 fL (6.9-10.8) Neutrophils (%) (Auto) 89.4 % (37.0-80.0) Lymphocytes (%) (Auto) 4.7 % (10.0-50.0) Monocytes (%) (Auto) 5.9 % (0.0-12.0) Eosinophils (%) (Auto) 0.0 % (0.0-7.0) Basophils (%) (Auto) 0.0 % (0.0-2.0) Neutrophils # (Auto) 9.8 10 ^3/uL (1.6-8.6) Lymphocytes # (Auto) 0.5 10 ^3/uL (0.4-5.4) Monocytes # (Auto) 0.6 10 ^3/uL (0-1.3) Eosinophils # (Auto) 0 10 ^3/uL (0-0.8) Basophils # (Auto) 0 10 ^3/uL (0-0.2) Nucleated Red Blood Cells 0.0 % Sodium Level 142 mmol/L (136-145) Potassium Level 3.8 mmol/L (3.5-5.1) Chloride Level 106 mmol/L (98-107) Carbon Dioxide Level 25 mmol/L (20-31) Anion Gap 11 (5-15) Blood Urea Nitrogen 11 mg/dL (9-23) Creatinine 0.68 mg/dL (0.700-1.30) Glomerular Filtration Rate Calc 101 mL/min (>90) BUN/Creatinine Ratio 16.2 (10.0-20.0) Serum Glucose 182 mg/dL (74-106) Calcium Level 8.5 mg/dL (8.7-10.4) Magnesium Level 1.9 mg/dL (1.6-2.6) Total Bilirubin 0.4 mg/dL (0.2-1.0) Aspartate Amino Transferase (AST) 24 U/L (13-40) Alanine Aminotransferase (ALT) 18 U/L (7-40) Alkaline Phosphatase 65 U/L (46-116) Total Protein 6.2 g/dL (5.7-8.2) Albumin 3.9 g/dL (3.2-4.8) Hepatitis B Surface Antigen Negative (Negative) Hepatitis C Antibody Negative (Negative) Influenza Type A Antigen Negative (Negative) Influenza Type B Antigen Negative (Negative) SARS-CoV-2 Antigen (Rapid) Positive (NEGATIVE) Troponin I High Sensitivity 10 ng/L (</=54) Test 02/01/25 09:20 02/01/25 08:55 02/01/25 08:52 Lactic Acid Level 0.9 mmol/L (0.4-2.0) Urine Color Colorless (Yellow) Urine Clarity Clear (Clear) Urine pH 6.0 (5.0-9.0) Urine Specific [place] 1.007 (1.001-1.035) Urine Protein Negative (Negative) Urine Ketones 2+ (Negative) Urine Blood Negative /uL (Negative) Urine Nitrite Negative (Negative) Urine Bilirubin Negative (Negative) Urine Urobilinogen Normal mg/dL (Negative) Urine Leukocyte Esterase Negative /uL (Negative) Urine RBC <1 /hpf (0 - 3) Urine Microscopic WBC < 1 /HPF (0-3) Urine Squamous Epithelial Cells None seen /hpf (<5) Urine Bacteria None seen /hpf (None Seen) Urine Glucose 2+ mg/dL (Normal) B-Type Natriuretic Peptide 104.72 pg/mL (0-100) Other Laboratory Tests 02/03/25 05:21 Brief Hx & Hospital Course: SEE DICTATED NOTE Condition at Discharge: Fair Final Diagnosis/Problems List COVID 19 Discharge Disposition: Home Discharge Instruct/Medications Diet: Regular Activity: No Restrictions, As Tolerated Follow Up/Referral: FU WITH [place] Medications: RESUME HOME MEDS SCRIPT TO PHARMACY Scheduled Allopurinol (Allopurinol), 2 TAB PO DAILY, (Reported) Amlodipine Besylate (Amlodipine Besylate), 1 TAB PO DAILY, (Reported) Aspirin (Aspirin), 81 MG PO DAILY, (Reported) Azelastine Hcl (Azelastine Hcl), 2 SPRAYS SARANYA BID, (Reported) Finasteride (Finasteride), 1 TAB PO DAILY, (Reported) Lisinopril (Lisinopril), 1 TAB PO DAILY, (Reported) Montelukast Sodium (Montelukast Sodium), 1 TAB PO DAILY, (Reported) Simvastatin (Simvastatin), 1 TAB PO HS, (Reported) Terazosin HCl (Terazosin HCl), 1 CAP PO HS, (Reported) Discharge Statement: "Patient was advised to return to the ER or call 911 if any headaches, dizziness, shortness of breath, chest pain, abdominal pain, bleeding, fevers, or worsening of medical condition. Patient was counseled about treatment plan, medications, possible side effects, patientverbalized understanding. All questions were answered to the best of my ability. This discharge took greater then 30 minutes in planning, reviewing documentation, counseling the patient, and discussing with other team members." ASSESSMENT ASSESSMENT Assessment COVID 19 Date of Service: Feb 03, 2025 Billing Provider: MERT STONE MD Common Visit Codes: 08580-OFE/OBS DISCH DAY >30min MERT STONE MD Feb 03, 2025 12:03
[2025-02-03] MEDS ORDERED: AZIT-185 PO (12:05)
[2025-02-03] MEDS ORDERED: PRED20TA2 PO (12:05)
--- NOTE | 2025-02-03 12:16 | DVHDS ---
DATE OF DISCHARGE: 02/03/2025 HISTORY OF PRESENT ILLNESS: The patient is a 69-year-old gentleman who was admitted with confusion, dizziness, cough, and shortness of breath. He has a history of COPD, hypertension, and hyperlipidemia. HOSPITAL COURSE: The patient's blood cultures were negative. He was COVID positive. His chest x-ray showed mild infiltrates. The patient had an echocardiogram done that showed ejection fraction of 60% to 65%. The patient will now be discharged home to resume his home medications as well as to be on prednisone 20 mg daily for 5 days and Zithromax 250 mg daily for 5 days. He will follow up with his primary in 1 week. FINAL DIAGNOSES: Therefore, * Acute respiratory failure. * COVID-19 with sepsis. * Questionable pneumonia, Gram-positive, Gram-negative. * COPD exacerbation. * Encephalopathy, likely metabolic. * Hypertension. * Hyperlipidemia. * Acute diastolic heart failure, ruled out. Time spent in discharge planning and review of plan with the patient and nursing was 38 minutes. MD GWEN Britton/MICHAEL TID: [id number] RECEIPT: [id number]
--- NOTE | 2025-02-03 14:06 | ECG ---
[facility] Test Date: 2025-02-01 Test Time: 08:17:24 Pat Name: NYA BARKER Department: [facility] ED Patient ID: [facility]-[id number] Room: 0236 Gender: M [employer] Operator: tran : 1955 Requested By: LITZY NUÑZE Order Number: [id number] Reading MD: Measurements Intervals [place] Rate: 107 P: 50 ME: 124 QRS: -35 QRSD: 88 T: 18 QT: 321 QTc: 429 Interpretive Statements Sinus tachycardia Atrial premature complexes Left axis deviation Baseline wander in lead(s) V3 Please click the below link to view image of tracing.
== END 2025-02-03 13:00 | disposition home or self-care (01) | DRG 871 ==
LOC: ER 08:06 → OVERFLOW 13:13 → EAST 18:40
PROVIDERS: ADMIT Internal Medicine; ATTEND Internal Medicine
DX: A41.89 Other specified sepsis (principal); G93.41 Metabolic encephalopathy; J96.01 Acute respiratory failure with hypoxia; J12.82 Pneumonia due to coronavirus disease 2019; J15.69 Pneumonia due to other Gram-negative bacteria; U07.1 COVID-19; J15.9 Unspecified bacterial pneumonia; J44.1 Chronic obstructive pulmonary disease with (acute) exacerbation; J44.0 Chronic obstructive pulmonary disease with (acute) lower respiratory infection; I50.9 Heart failure, unspecified; I11.0 Hypertensive heart disease with heart failure; E78.5 Hyperlipidemia, unspecified; Z85.820 Personal history of malignant melanoma of skin
CPT/HCPCS: 36415; 71045; 80048; 80053; 81001; 83605; 83735; 83880; 84484; 85025; 86803; 87040; 87340; 87426; 87804; 93005; 93306; 94640; 99291; 99292; G0378